=== PATIENT | male | born 1955 | race Caucasian/White ===

== ENCOUNTER 2017-03-12 15:52 | Inpatient (IN) ==
[2017-03-12] MEDS ORDERED: Heparin 25,000 UNIT/500 ML D5W 25,000 UNIT/500 ML BAG IVC ONE (15:55)
[2017-03-12] MEDS ORDERED: *HR* Ticagrelor 90 MG TABLET PO ONE (15:55)
[2017-03-12] MEDS ORDERED: 0.9 % Sodium Chloride 1,000 ML ONE ×3 (15:55→16:30)
[2017-03-12] MEDS ORDERED: 0.9 % Sodium Chloride 1,000 ML IVC ONE (15:55)
[2017-03-12] MEDS ORDERED: *HR* Heparin 5,000 UNIT/ML VIAL IVP ONE (16:02)
[2017-03-12] MEDS ORDERED: *HR* Heparin 5,000 UNIT/ML VIAL IVP PRN ×2 (16:02)
--- NOTE | 2017-03-12 16:04 | Emergency Department Note ---
Disposition Clinical Impression: ST elevation myocardial infarction (STEMI) Qualifiers: Involved coronary artery: right coronary artery Qualified Code(s): I21.11 - ST elevation (STEMI) myocardial infarction involving right coronary artery Disposition: Admitted As Inpatient Condition: Fair Time of Disposition: 16:12 Chest Pain HPI - General Chief Complaint: ED Chest Pain Stated Complaint: CP Time Seen by Provider: 03/12/17 15:54 Source: patient, EMS Mode of arrival: EMS Limitations: no limitations Vital Signs Reviewed: Yes Nursing Notes Reviewed: Yes - History of Present Illness HPI Narrative: 61-year-old male presents emergency Department with chest pain present. EMS with a sent and an EKG which showed a STEMI. Patient stated his chest pain started yesterday evening where was about a 4 out of 10 he noticed that about an hour prior to arrival he started having worsening chest pain where it was 9 out of 10 radiating up into his left jaw. He was very sweaty and also worried him to call the squad. Patient states his only history is hypertension and GERD. He otherwise had no cardiac diseases. He has seen a advice nurse one time for an arrhythmia where he had a sinus pause is there is been no issues of that since. Patient does not have diabetes. He says he is not nauseous not having any other symptoms at this time. Just the chest pain. Patient otherwise having no complaints. No headaches, blurry vision, back pain, neck pain, abdominal pain, shortness of breath, pain or tingling in any arms or legs , fevers, change in bowel movements or pain with urination. - Related Data Previous Rx's Medication Instructions Recorded Lidocaine Patch [Lidoderm 5% patch] 1 each TP DAILY #10 adh..patch 06/08/16 Allergies Allergy/AdvReac Type Severity Reaction Status Date / Time acetaminophen [From Percocet] Allergy Itching Verified 06/08/16 13:52 iodine Allergy Swelling Verified 06/08/16 13:52 of Lip/Tongue/Throat ofloxacin [From Floxin] Allergy Rash Verified 06/08/16 13:52 Oxycodone [From Percocet] Allergy Itching Verified 06/08/16 13:52 Review of Systems: 10 point review of systems done and negative unless otherwise stated in history of present illness. All systems ED: reviewed and negative except as stated. Review of Systems: As Per HPI Chest Pain PMH - Past Medical History Medical history: Reports: hypertension - Social History Smoking Status: Current every day smoker Alcohol use: Reports: occasionally Drug use: Reports: none Physical Exam - General Limitations: no limitations General appearance: alert, in no apparent distress (Patient is diaphoretic but not in any distress.) - Head Head exam: atraumatic - Eye Eye exam: Present: normal appearance, PERRL, EOMI - ENT ENT exam: normal exam, normal oropharynx, mucous membranes moist - Neck Neck exam: Present: normal inspection, full ROM, trachea midline - Chest Chest inspection: Present: normal inspection, symmetric chest wall rise - Respiratory Respiratory exam: Present: normal lung sounds bilaterally - Cardiovascular Cardiovascular exam: Present: regular rate, normal rhythm, normal heart sounds - Abdominal Exam Abdominal exam: Present: soft, Non-Tender. Absent: tenderness, distention, guarding, rebound, rigidity - Extremities Exam Extremities exam: Present: normal inspection, full ROM. Absent: tenderness, pedal edema - Back Exam Back exam: Present: normal inspection, full ROM. Absent: tenderness, CVA tenderness (R), CVA tenderness (L) - Neurological Exam Neurological exam: Present: alert, oriented X3 - Skin Skin exam: Present: warm, dry, intact, normal color Course Course Narrative: 61-year-old male presents to the ED with chest pain. Presented here with EMS a EKG was sent to us prior to their arrival it did show STEMI at this time we activated the STEMI alert. We contacted the cardiology suite and a headache currently had a patient on the tables they are unable to take him straight back to cardiology. We then took him back to the room and we got basic labs including CBC, BMP, troponin, PT, INR, PTT. Did give patient brillenta and heparin. We also got an EKG. Also get chest x-ray. It patient was given aspirin prior to arrival by EMS. He was not given a nitroglycerin due to being inferior CA. Patient okay with this plan. We did contact cardiology. - Consultations Consultation #1: Spoke with the clinical consultant Dr. Beasley agreed to set the patient and they will see him in the cardiology Sand Cutting Machine Operator. Time: 16:07 Chest Pain - [facility] Narrative Medical decision making narrative: 61-year-old male presented to the emergency department via EMS with an inferior STEMI. It was called in by EMS we activated the STEMI alert right leg at the EKG. When he arrived we placed in room 25 place the cardiac pads on him and place him on defibrillator. Patient also had an EKG done which again solidified the inferior CA. Patient was given aspirin prior to arrival. He is not given nitroglycerin. We did not give nitroglycerin due to this being an inferior CA. Patient was given heparin and Dilantin. Patient is allergic to iodine so we pretreated him with Benadryl. Patient does not have any cardiac history never had any stents placed. Patient was immediately taken taken back to the catheter lab to Dr. Beasley the clinical consultant do heart catheter. Patient doing well when he left. Patient was still having pain when he left. Patient is now admitted to the advice nurse service. - Medical Records Medical records reviewed: Yes I reviewed the patient's medical records. - Lab Data Lab results reviewed: Yes I reviewed the patient's lab results. Result diagrams: 03/12/17 15:58 03/12/17 15:58 - EKG Data EKG attestation: Yes I reviewed and interpreted this EKG. EKG results narrative: EKG done at 1556 review by myself and the attending shows sinus rhythm at a rate of 55, ME interval 320, QRS 113, QTc 386 with a normal axis. There is ST elevation in leads II, III, and F aVF with ST depression in V1 and V2 and V3 showing reciprocal changes. There is also depression in aVL. There is no acute T-wave abnormalities, no signs of heart strain or hypertrophy, no signs of any heart blocks, no signs of WPW/Brugada syndrome. This is an inferior myocardial infarction. This EKG is changed as the previous one done 06/08/[address] changes. Heart Score - Score History: Highly Suspicious EKG: Significant ST-Depression Age: 45-65 Risk Factors: 1-2 risk factors Troponin: 1-3x normal limit HEART Score Total: 7 Attestation Statement - Attestation Attestation: I, Nils Flores, examined this patient and my medical decision-making was reviewed with the CONSULTING ENGINEER/PA/Advanced Practice Nurse/Resident Physician. I agree with the documented findings, disposition and treatment plan as described except to the extent set forth below. 61-year-old male presents to the emergency department by EMS for concerns of chest pain. Patient states pain has been intermittent over the past 2 days. Today it significantly worsened. EMS performed an EKG which showed significant elevations in the inferior leads with depressions in leads V2, V3. Sand Cutting Machine Operator was notified immediately of the patient's case and presentation. Dr. Beasley was the interventionalist who was in the middle of a cardiac catheterization and the patient arrived. Patient was given aspirin by EMS and was started on heparin and Brillinta. Patient was taken back to cardiac Sand Cutting Machine Operator as soon as it was available.
[2017-03-12 16:09] LABS: Basophils # 0.1 K/mcL (0.0-0.2); Basophils % 0.5 %; Eosinophils # 0.3 K/mcL (0.0-0.6); Eosinophils % 2.3 %; Hemoglobin 14.2 g/dL (12.9-16.9); Immature Granulocytes % 0.3 % (0-4); Lymphocytes # 2.8 K/mcL (0.6-4.6); Lymphocytes % 24.2 %; Mean Corpuscular Volume 90.7 fL (83.0-100.0); Neutrophils # 7.3 K/mcL (1.6-8.9); Platelet Count 292 K/mcL (140-400); Red Blood Count 4.74 M/mcL (4.19-5.50); Red Cell Distribution Width 13.4 % (11.5-14.5); Segmented Neutrophils % 63.7 %
[2017-03-12 16:13] LABS: INR 1.1; Prothrombin Time 11.8 Seconds (9.4-12.1)
[2017-03-12] MEDS ORDERED: Heparin 25,000 UNIT/500 ML D5W 25,000 UNIT/500 ML BAG IVC SCH (16:15)
[2017-03-12 16:16] LABS: Activated Partial Thrombo Time 26.9 Seconds (26.0-36.0)
[2017-03-12] MEDS ORDERED: *HR* Heparin 10,000 UNIT/10 ML VIAL ONE (16:17)
[2017-03-12] MEDS ORDERED: Nitroglycerin 1,000 MCG/10 ML VIAL IV ONE (16:17)
[2017-03-12 16:22] LABS: BUN/Creatinine Ratio 13 (6-26); Blood Urea Nitrogen 15 mg/dL (8-26); Calcium 9.5 mg/dL (8.6-10.8); Carbon Dioxide 24 mEq/L (19-29); Chloride 106 mEq/L (98-109); Creatine Kinase 72 Units/L (30-200); Glucose 132 mg/dL (70-99); Magnesium 1.6 mg/dL (1.6-2.6); Osmolality,Calculated 295 (280-300); Potassium 3.8 mEq/L (3.5-4.5); Sodium 141 mEq/L (136-145); eGFR For African Americans > 60 (> 60); eGFR For Non-African Americans > 60 (> 60)
[2017-03-12] MEDS ORDERED: *HR* Midazolam HCl 5 MG/5 ML VIAL IVP ONE (16:24)
[2017-03-12] MEDS ORDERED: *HR* Atropine Sulfate 1 MG/10 ML SYRINGE ONE (16:26)
[2017-03-12] MEDS ORDERED: Tirofiban 12.5 MG/250ML 12.5 MG/250 ML BAG ONE (16:44)
[2017-03-12] MEDS ORDERED: Naloxone 0.4 MG/ML INJ IVP PRN (17:23)
[2017-03-12] MEDS ORDERED: Ondansetron 4 MG/2 ML VIAL IVP PRN (17:25)
[2017-03-12] MEDS ORDERED: Nitroglycerin 0.4 MG TAB.SUBL SL PRN (17:25)
--- NOTE | 2017-03-12 17:25 | Invasive Diagnostic Lab Proc ---
Name: Hao Baker Date of Study: 03/12/2017 Date: 1955 Ht: 70.0in Medical Record#: [id number] Age: 61 Wt: 227.52lb Gender: Male BSA: 2.2 Order #: [id number] BMI: 32.64 Physicians Procedure Physician: Osito Beasley DO Referring MD: Referring MD: Staff Name Position [facility] Monitor 04:18 PM Christina Lopez RN Commercial Mortgage Broker 04:18 PM Mary Martin RN Nurse 04:18 PM Chloe Coates RT (R) Scrub 04:18 PM Indications Indication STEMI Procedures Performed Procedure L HRT ARTERY/VENTRICLE ANGIO PRQ CARD REVASC HI 1 VSL Pre-Procedure Checklist Informed consent is complete signed and on chart. H&P is on chart. ID band is on and ID verified with patient. Patient NPO for procedure The procedure was described for the patient and questions were answered. ECG is on chart. Rhythm: Stemi Plan of Care Patient will tolerate the procedure without complications. Adequate level of comfort will be maintained. Hemodynamics will remain stable Patient will recover from procedure without complications. Respiratory function will be maintained. Cardiac rhythm will remain stable. Patient temperature will be maintained. Patient and/or family have verbalized understanding of the procedure. Patient Education Chief Complaint/Reason for Test: Cardiac Cath Developmental Category: Adult (18-64 years) Developmentally Appropriate for Age: Yes Learning Barriers: None Education Needs: Procedure Education Method: Verbal Information Taught: Cardiac Cath Educational Evaluation: Able to repeat information Intravenous Access Time IV Size Location DC'd Fluid/Drip Rate Units RN 04:24 PM 18g 1 1/4" Patent On Arrival Lt Antecubital 0.9NaCl 25 ml/hr Christina Lopez RN 04:24 PM 18g 1 1/4" Patent On Arrival Rt Antecubital Allergies iodine ofloxacin Oxycodone acetaminophen Vital Signs Time BP (mmHg) HR (bpm) O2 Sat. RR (bpm) LOC 04:27 PM / % 5 = Fully awake and oriented or at pre-proc level 04:27 PM / % 4 = Oriented but drowsy 04:42 PM / % 4 = Oriented but drowsy 04:20 PM 146 / 85 66 100 % 14 04:21 PM 124 / 84 58 100 % 11 04:26 PM 139 / 81 65 100 % 15 04:31 PM 119 / 75 56 100 % 26 04:36 PM 132 / 88 70 100 % 23 04:41 PM 105 / 74 69 100 % 19 04:46 PM 98 / 67 72 100 % 21 04:52 PM 134 / 83 94 99 % 20 04:53 PM 143 / 82 102 100 % 18 04:56 PM 149 / 95 104 100 % 21 Procedural Medications Time Medication Dose Units Method Given By 04:19 PM Oxygen 2 L/min nasal cannula Christina Lopez RN 04:25 PM Versed 2 mg Intravenous Christina Lopez RN 04:29 PM Lidocaine 2% 10 ml Subcutaneous Osito Beasley DO 04:40 PM Atropine 0.25 mg Intravenous Amita Helm RN 04:41 PM Dopamine 5 mcg/kg/min Intravenous Christina Lopez RN 04:45 PM Atropine 0.5 mg Intravenous Amita Helm RN 04:46 PM Dopamine 7.5 mcg/kg/min Intravenous Christina Lopez RN 04:47 PM Aggrastat Bolus: 50 ml Intravenous Amita Helm RN 04:47 PM Aggrastat 12.5mg/250ml 18 ml Intravenous Amita Helm RN 04:58 PM Dopamine 5 mcg/kg/min Intravenous Christina Lopez RN ASA Classification: Emergent Procedure: ASA score is assumed Linda Score Preprocedure Postprocedure Activity 2- Moves 4 extremities sustained head lift Activity 2- Moves 4 extremities sustained head lift Circulation 2- SBP +/= 20 points of pre-anesthetic level Circulation 2- SBP +/= 20 points of pre-anesthetic level Consciousness 2- Awake and alert oriented x 3 Consciousness 2- Awake and alert oriented x 3 O2 Saturation 2- Able to maintain O2 satruation of 92% on room air O2 Saturation 2- Able to maintain O2 satruation of 92% on room air Respiratory 2- Able to deep breathe and cough well Respiratory 2- Able to deep breathe and cough well Total Score 10 Total Score 10 Contrast Agent: Isovue Diagnostic Contrast: 100 ml Total Contrast: 100 ml Fluoro Dose: 860 mGy Activated Clotting Time Time Seconds to Clot 04:44 PM 385 Procedure Log Time Note Enter By 04:10 PM Pt arrived [facility] dairy lab technician [email or web address] 04[facility] PM Amita Helm RN Position: Monitor Time in: 16:10 [email or web address] 04:10 PM Christina Lopez RN Position: Commercial Mortgage Broker Time in: 16:10 [email or web address] 04:18 PM Mary Martin RN Position: Nurse Time in: 16:18 [email or web address] 04:18 PM Chloe Coates RT (R) Position: Scrub Time in: 16:18 [email or web address] 04:18 PM Patient charges- Angio tray pack, Navilyst 3mm J, Pulse Oximetry and ACIST tubing and transducer 04:19 PM Hair removed from procedure site in procedure lab using clippers. Bilateral groin prepped with Chloraprep by Mary Martin RN, safety strap applied then patient was draped. Skin intact. oumm 04:19 PM Physican paged/called 16:19. oumm 04:19 PM Physican responded and notified patient is ready 16:19 oummers 04:19 PM Physician arrived 16:19 mmers 04:19 PM Meet and greet completed 04:19 PM Sign in performed according to hospital policy. [email or web address] 04:19 PM Procedure start 16:19 [email or web address] 04:19 PM Time: 16:19 Oxygen on at 2 L/min per nasal cannula by Christina Lopez RN [facility] 04:19 PM Vitals capture started with the following parameters, Patient=Adult, Interval=5 min, Initial Yspokuog=888 mmHg, Deflation Rate=5 mmHg, Cuff placed on Right Arm 04:19 PM Vitals capture stopped. 04:20 PM HR=66 bpm, BTVN=537/85 mmhg, ZzS7=440.0 %, Resp=14 B/min, Comment=SR 04:20 PM Case Start 04:20 PM CathStat 04:21 PM Vitals capture started with the following parameters, Patient=Adult, Interval=5 min, Initial Jporcqta=926 mmHg, Deflation Rate=5 mmHg, Cuff placed on Right Arm 04:21 PM HR=58 bpm, ZWTH=436/84 mmhg, HwM5=730.0 %, Resp=11 B/min 04:25 PM Time: 16:25 Versed 2 mg Intravenous Given by Christina Lopez RN [email or web address] 04:26 PM Pressure channel 1 zeroed. 04:26 PM HR=65 bpm, ZNJW=811/81 mmhg, AnL8=246 %, Resp=15 B/min 04:27 PM Time: 16:27 Patient comfortable and pain free: Yes : PM Time: 16:LOC: 5 = Fully awake and oriented or at pre-proc level kk: PM Time out performed according to hospital policy kk 04:27 PM Clinical Presentation: STEMI or equivalent 04:28 PM Time: 16:29 10 ml Lidocaine 2% to right groin Subcutaneous Given by Osito Beasley DO :29 PM Micro-Introducer Kit utilized for sheath placement kk 04:29 PM Access obtained by percutaneous puncture. 6Fr 10cm Terumo [place] sheath placed in right Femoral artery. [id number] kkall 04:30 PM 6Fr FL 4 catheter inserted over the wire DNC kkall 04:30 PM wire removed kk 04:30 PM fluids opened for 500 cc bolus [email or web address] 04:30 PM Recorded Pressure: Ao, HR=56, Condition=Condition 1 (Aorta) Ao 92/50/68 04:31 PM LCA angiography performed in multiple views. kkall 04:31 PM Catheter removed kkner 04:31 PM HR=56 bpm, FHYW=659/75 mmhg, FcF4=966.0 %, Resp=26 B/min 04:32 PM 6Fr JR 4 Marydel Bright-Tip guide catheter was used to cannulate the PCI vessel successfully. reused? No kkallner 04:32 PM wire removed kkallner 04:32 PM Recorded Pressure: LV, HR=89, Condition=Condition 1 (Left Ventricle) LV 91/6/16 04:32 PM Recorded Pressure: LV, Ao, HR=67, Condition=Condition 1 (Left Ventricle) LV 99/7/14, (Aorta) Ao 106/40/80 04:33 PM Catheter selectively placed in left ventricle [email or web address] 04:33 PM Bolus angiogram of left Ventricle kkallner 04:33 PM catheter placed into RCA [email or web address] 04:33 PM RCA angiography performed in multiple views. kkner 04:34 PM .014 ChoICE PT Extra Support 300cm guide wire across target lesion- successful. reused? No Mid RCA kkallner 04:35 PM 3.5mm x 24mm Synergy drug-eluting stent across target lesion- successful Lot #[id number] [email or web address] 04:36 PM Recorded Pressure: Ao, HR=75, Condition=Condition 1 (Aorta) Ao 111/70/89 04:36 PM HR=70 bpm, MOHN=085/88 mmhg, ZsQ1=991.0 %, Resp=23 B/min 04:38 PM Stent deployed @ 14 reta for 15 seconds [email or web address] 04:40 PM Time: 16:40 Atropine .25 mg Intravenous Given by Amita Helm RN [email or web address] 04:41 PM Time: 16:41 Dopamine 5 mcg/kg/min Intravenous Given by Christina Lopez RN [place] pump [email or web address] 04:41 PM HR=69 bpm, YPHI=750/74 mmhg, ScC5=688.0 %, Resp=19 B/min 04:42 PM Time: 16:27 Patient comfortable and pain free: Yes [email or web address] 04:42 PM Time: 16:27LOC: 4 = Oriented but drowsy [email or web address] 04:42 PM Stent delivery system removed intact. [email or web address] 04:43 PM 3.0mm x 24mm Synergy drug-eluting stent across target lesion- successful Lot #[id number] Distal RCA [email or web address] 04:44 PM At 16:44 the ACT was 385 seconds. [email or web address] 04:44 PM Stent deployed @ 14 reta for 15 seconds [email or web address] 04:44 PM Stent balloon reinflated @ 18 reta for 10 seconds [email or web address] 04:45 PM Stent delivery system removed intact. [email or web address] 04:45 PM Time: 16:45 Atropine .5 mg Intravenous Given by Amita Helm RN kkallner 04:46 PM HR=72 bpm, NIBP=98/67 mmhg, DbC2=208.0 %, Resp=21 B/min 04:46 PM Time: 16:46 Dopamine 7.5 mcg/kg/min Intravenous Given by Christina Lopez RN [place] pump [email or web address] 04:47 PM Stent delivery system removed intact. [email or web address] 04:47 PM Time: 16:47 Aggrastat Bolus: 50 ml Intravenous Given by Amita Helm RN [place] pump [email or web address] 04:47 PM Time: 16:47 Aggrastat 12.5mg/250ml 18 ml Intravenous Given by Amita Helm RN [place] pump [email or web address] 04:48 PM 3.0mm x 12mm Synergy drug-eluting stent across target lesion- successful Lot #[id number] [email or web address] 04:51 PM Stent deployed @ 14 reta for 18 seconds kkner 04:51 PM Stent balloon reinflated @ 16 reta for 10 seconds [email or web address] 04:52 PM HR=94 bpm, ISSP=890/83 mmhg, SpO2=99.0 %, Resp=20 B/min 04:52 PM Stent delivery system removed intact. [email or web address] 04:53 PM NIBP STAT measurement started. 04:53 PM 2.5 mm x 20 mm Emerge Monorail balloon across target lesion- successful. reused? No [email or web address] 04:53 PM YX=681 bpm, EBKF=659/82 mmhg, KdB7=154 %, Resp=18 B/min 04:54 PM balloon and wire removed kkner 04:55 PM balloon never inflated kk 04:55 PM Bolus angiogram of right Femoral complete: 4 ml/sec for a total of 7 mls kk 04:56 PM Catheter removed kkner 04:56 PM VD=759 bpm, ZDQX=915/95 mmhg, MtM2=743 %, Resp=21 B/min 04:57 PM Time: 16:42 Patient comfortable and pain free: Yes 04:57 PM Time: 16:42LOC: 4 = Oriented but drowsy [email or web address] 04:57 PM Procedure completed at 16:57 kkall 04:58 PM Sign out completed: Radiation Dose 859.85 mGy Fluoro Time: 7.4 Isovue 370 - 200ml contrast 100 ml given by Osito Beasley DO. Complications: NoneCardiac Rehab Consult needed: YesConfirmed administered medications: Yes 04:59 PM Time: 16:58 Dopamine 5 mcg/kg/min Intravenous Given by Christina Lopez RN [place] pump kk 05:00 PM Isovue 370 - 200ml,1 Bottle(s) used. kk 05:00 PM Arterial sheath pulled, Mynx closure device used and was Successful [id number] S/N. [email or web address] 05:00 PM Post ECG Sinus Tachycardia kkall 05:01 PM Post Blood Pressure 149/95 kkall 05:01 PM 17:01 Post Pulses Bilateral DP & PT 2+ kkallner 05:01 PM Information taught Cardiac Cath and Mynx kkallner 05:01 PM Education needs Procedure, Plan of Care, and Responsibilities of Patient in Care [email or web address] 05:01 PM Learning barriers :None kkallner 05:01 PM Education Methods Verbal kkallner 05:01 PM Education evaluation Able to repeat information [email or web address] 05:01 PM Site status No bleeding/hematoma - Rt Groin as reported by Chloe Coates RT (R) at 17:01 [email or web address] 05:01 PM Opsite applied kkallner 05:01 PM Plavix, Effient or Brilinta given No kkallner 05:01 PM Delay to floor No [email or web address] 05:02 PM Patient out of room: 17:01 [email or web address] 05:02 PM Family placed in consult room. [email or web address] 05:02 PM Complications: None kkallner 05:02 PM Fluoro Time: 7.4 [email or web address] 05:02 PM Isovue 370 - 200ml contrast 100 ml given by Osito Beasley DO. [email or web address] 05:02 PM Radiation Dose 859.85 mGy kkallner 05:03 PM Coronary Dominance: right [email or web address] 05:04 PM Lesion found in Mid RCA. Pre Stenosis: 100 Pre JOSE JUAN Flow: [email or web address] 05:04 PM Lesion found in Mid Circumflex. Pre Stenosis: 60 Pre JOSE JUAN Flow: [email or web address] 05:04 PM Lesion found in 1st Marginal. Pre Stenosis: 60 Pre JOSE JUAN Flow: [email or web address] 05:05 PM Left Main Coronary Artery with 0% stenosis kkallner 05:05 PM Proximal Left Anterior Descending Coronary Artery with 0% stenosis. If graft is supplying this territory, 0 % stenosis. [email or web address] 05:05 PM Mid/Distal Left Anterior Descending Coronary Artery and diagonal branches with 0% stenosis. If graft is supplying this area, 0 % stenosis kkallner 05:05 PM Circumflex, Obtuse Marginal, Left Posterior Descending, and Left Posterolateral Coronary Arteries with 60 % stenosis. If graft is supplying this area, 0 % stenosis kkallner 05:05 PM Right Coronary, Right Posterior Descending Arteries with Right Posterolateral and Acute Marginal branches with 100 % stenosis. If graft is supplying this area, 0 % stenosis kkallner 05:05 PM Ramus with 0% stenosis. If graft is supplying this area, 0 % stenosis kkallner 05:10 PM Dopamine d/c kkallner 05:17 PM Report given to Michelle POWELL Pt taken to ICU Room #1. 17:17 [email or web address] Complications Complication None None Hemodynamics Pressures Site Systolic/A Wave Diastolic/V Wave Mean AO 92 50 68 LV 91 6 16 LV 99 7 14 AO 106 40 80 AO 111 70 89 Post Procedure Information Blood Pressure: 149/95 mmHg Rhythm: Sinus Tachycardia Post procedural instructions were given Closure Device Time Device Success/Fail 03/12/2017 5:07:00 PM MynxGrip Site Checks Time Location Status Staff Sheath In? Note 05:01 PM Rt Groin No bleeding/hematoma Sue Gar MD, FACC 05:01 PM Rt Groin No bleeding/hematoma Chloe Coates RT (R) Pulses Time Site Pre-Procedure Post-Procedure Note 03/12/2017 4:28:00 PM Bilateral DP & PT 2+ 5:01:00 PM Bilateral DP & PT 2+ Updated by Jacinda Santos RT (R) on 03/12/2017 5:17:58 PM electronically signed on 03/12/2017 5:18:34 PM with status of Final
[2017-03-12] MEDS: 0.9 % Sodium Chloride 1,000 ML IVC SCH ×2 (17:44→21:43)
--- NOTE | 2017-03-12 19:41 | Cardiology History & Physical ---
Date of Encounter: 03/12/17 Time of Encounter: 16:00 Assessment and Plan (1) ST elevation myocardial infarction (STEMI) Current Visit: Yes Status: Acute The assessment and plan as outlined above was discussed with the patient and/or family members who expressed understanding and agreement. All questions were answered. Acute inferior STEMI, with ongoing chest pain, hemodynamically stable but reletively hypotensive, discussed risks and benefits of emergent invasive strategy of left heart cath with revascularization if indicated, pt elects to proceed. History of Present Illness Chief complaint: Chest pain HPI: Mr. Baker is a 61 year old male who presented to the ER with new onset mid epigastric chest pain, starting last pm while at rest, 5/10 with initial episode , associated with shortness of breath and pain in bilat jaws, lasting approx 20 mins before resolving spontaneously. He had 2 to 4/10 chest pain on and off overnight, pain did not completely resolve. He noted sudden increase in pain severity, to 10/10, accompanied by nausea, diaphoresis and radiation into jaw bilaterlly. He sought care in the ER, was found to have acute ST segment elevation in the inferior leads consistent with inferior STEMI. He continues to have 8/10 chest pain despite medical tx., radiating into jaw. Past Med Surg Social Fam HX - Past Medical History Medical history: hypertension, kidney stones, myocardial infarction - Social History Smoking Status: Current every day smoker Smokeless Tobacco Status: No Alcohol use: occasionally Drug use: none - Family History Father Living Status: Age at : 84 Cause of : cancer and heart disease Hx Family Cardiac Disorders: Yes Hx Family Cancer: Yes Mother Living Status: Age at : 81 Cause of : heart Hx Family Cardiac Disorders: Yes Medications and Allergies Lidocaine Patch [Lidoderm 5% patch] 1 each TP DAILY #10 adh..patch 06/08/16 [Rx] 3 Allergy/AdvReac Type Severity Reaction Status Date / Time acetaminophen [From Percocet] Allergy Itching Verified 06/08/16 13:52 iodine Allergy Swelling Verified 06/08/16 13:52 of Lip/Tongue/Throat ofloxacin [From Floxin] Allergy Rash Verified 06/08/16 13:52 Oxycodone [From Percocet] Allergy Itching Verified 06/08/16 13:52 All Systems Review: A 10-system review of systems was performed and is negative for pertinent findings except as documented above in the HPI. Physical Examination Vital Signs, Last 4 Hours Temp Pulse Resp BP Pulse Ox 03/12/17 18:30 65 20 129/85 100 03/12/17 18:15 71 18 117/82 99 03/12/17 18:00 71 20 114/74 98 03/12/17 17:45 71 18 119/77 95 03/12/17 17:37 71 03/12/17 17:35 97.7 F 71 20 112/76 98 03/12/17 17:34 97.7 F 71 20 112/76 98 General: Conversant, Other (severe pain, in obvious distress.) Neck: No JVD, Normal carotid pulses Cardiac: Reg Rate and Rhythm, Normal S1 and S2 Lungs: Normal Breath Sounds, No Wheeze, Rales, Rhonchi Neuro: Alert and responsive, No focal deficits noted Abdomen: Soft, Non-Tender Skin: No rashes noted on visualized skin Musculoskeletal: No Chest Wall Tenderness Extremities: No Cyanosis, No Edema, Normal Pulses Results 03/12/17 15:58 03/12/17 15:58
[2017-03-12] MEDS: *HR* Ticagrelor 90 MG TABLET PO SCH (20:38)
[2017-03-13 06:20] LABS: BUN/Creatinine Ratio 14 (6-26); Blood Urea Nitrogen 13 mg/dL (8-26); Calcium 8.7 mg/dL (8.6-10.8); Carbon Dioxide 22 mEq/L (19-29); Chloride 110 mEq/L (98-109); Glucose 107 mg/dL (70-99); Osmolality,Calculated 289 (280-300); Sodium 139 mEq/L (136-145); eGFR For African Americans > 60 (> 60); eGFR For Non-African Americans > 60 (> 60)
[2017-03-13 06:34] LABS: Eosinophils % 1.1 %; Hematocrit 37.8 % (37.5-50.1); Immature Granulocytes % 0.3 % (0-4); Lymphocytes % 19.6 %; Mean Corpuscular HGB Conc 32.8 g/dL (31.6-35.5); Mean Corpuscular Hemoglobin 29.2 pg (28.0-33.3); Mean Corpuscular Volume 89.2 fL (83.0-100.0); Mean Platelet Volume 10.2 fL (9.4-12.4); Monocytes % 9.3 %; Platelet Count 232 K/mcL (140-400); Red Blood Count 4.24 M/mcL (4.19-5.50); Red Cell Distribution Width 13.6 % (11.5-14.5); Segmented Neutrophils % 69.5 %
[2017-03-13 06:35] LABS: Basophils % 0.2 %; Eosinophils # 0.1 K/mcL (0.0-0.6); Hemoglobin 12.4 g/dL (12.9-16.9); Lymphocytes # 2.4 K/mcL (0.6-4.6); Monocytes # 1.2 K/mcL (0.0-1.3); Neutrophils # 8.6 K/mcL (1.6-8.9)
--- NOTE | 2017-03-13 08:06 | Pulmonology Consult Note ---
Date of Encounter: 03/13/17 Time of Encounter: 08:00 Assessment and Plan (1) ST elevation myocardial infarction (STEMI) Current Visit: Yes Status: Acute Patient hemodynamically stable after intervention and he will be transferred to [facility]. At this time patient appears to be stable and can be followed up by hospitalist if needed. Thank you very much for the consultation Qualifiers: Involved coronary artery: right coronary artery Qualified Code(s): I21.11 - ST elevation (STEMI) myocardial infarction involving right coronary artery (2) Leukoariosis Current Visit: Yes Status: Acute This is most likely is related and can be found in patient with acute coronary syndrome no need for any antibiotics. Patient to be on GI prophylaxis DVT prophylaxis. The patient has antiplatelet and received heparin History of Present Illness Consult date: 03/13/17 Requesting physician: Osito Beasley Reason for consult: other (Critical care management) Chief complaint: Chest pain History of present illness: This is a pleasant 61-year-old male came to the emergency room with new onset epigastric chest pain and he was found to have ST elevation OK and was treated. Patient was admitted to ICU after that. At this point patient denies any significant chest pain. He denies any history of COPD or any other significant comorbidities. Due to change his environment he had difficult to sleep last night. He denies any fever or chills. Past Med Surg Social Fam HX - Past Medical History Medical history: hypertension - Social History Smoking Status: Current every day smoker Smokeless Tobacco Status: No Alcohol use: occasionally Drug use: none - Family History Father Living Status: Age at : 84 Cause of : cancer and heart disease Hx Family Cardiac Disorders: Yes Hx Family Cancer: Yes Mother Living Status: Age at : 81 Cause of : heart Hx Family Cardiac Disorders: Yes Medications and Allergies Lidocaine Patch [Lidoderm 5% patch] 1 each TP DAILY #10 adh..patch 06/08/16 [Rx] 3 Allergy/AdvReac Type Severity Reaction Status Date / Time acetaminophen [From Percocet] Allergy Itching Verified 06/08/16 13:52 iodine Allergy Swelling Verified 06/08/16 13:52 of Lip/Tongue/Throat ofloxacin [From Floxin] Allergy Rash Verified 06/08/16 13:52 Oxycodone [From Percocet] Allergy Itching Verified 06/08/16 13:52 All Systems: A 10-system review of systems was performed and is negative for pertinent findings except as documented above in the HPI. Physical Examination Vital Signs: Vital Signs, Last 4 Hours Temp Pulse Resp BP Pulse Ox 03/13/17 07:28 52 03/13/17 07:26 98.3 F 03/13/17 07:00 52 18 95/65 96 03/13/17 06:00 53 19 96/67 97 03/13/17 05:00 55 19 99/57 96 03/13/17 04:16 98.4 F General appearance: no acute distress Eyes: nonicteric ENT: oropharynx moist Neck: supple Effort: normal Inspection: normal Auscultation: bilateral: clear Percussion: bilateral: not dull Cardiovascular: regular rate and rhythm Extremities: no cyanosis normal mental status, non-focal exam mood appropriate Results - Laboratory Findings CBC and BMP: 03/13/17 05:58 03/13/17 05:58 PT/INR, D-dimer PT 11.8 Seconds (9.4-12.1) 03/12/17 15:58 Abnormal lab findings: Abnormal lab results WBC 12.4 K/mcL (4.3-11.1) H 03/13/17 05:58 Hgb 12.4 g/dL (12.9-16.9) L D 03/13/17 05:58 Chloride 110 mEq/L (98-109) H 03/13/17 05:58 Glucose 107 mg/dL (70-99) H 03/13/17 05:58 POC Glucose 112 (58-89) H 03/12/17 17:30 Troponin I 0.36 ng/mL (0-0.03) H* 03/12/17 15:58 - Clinical Findings Intake & Output: Intake & Output 03/12/17 03/13/17 03/13/17 23:59 07:59 15:59 Intake Total 1240 / 1240 240 / 240 Output Total 750 / 750 450 / 450 Balance 490 / 490 -210 / -210 Weight 104.4 kg Consult Discharge Plan - Plan Referrals: Richard Robin MD [Primary Care Provider] -
[2017-03-13] MEDS: Aspirin 81 MG TAB.CHEW PO SCH (08:12)
[2017-03-13] MEDS: *HR* Ticagrelor 90 MG TABLET PO SCH ×2 (08:12→19:59)
[2017-03-13] MEDS: Famotidine 20 MG TABLET PO SCH ×2 (08:12→17:17)
[2017-03-13] MEDS: 0.9 % Sodium Chloride 1,000 ML IVC SCH (08:16)
--- NOTE | 2017-03-13 12:53 | Cardiology Progress Note ---
Date of Encounter: 03/13/17 Time of Encounter: 12:51 Assessment and Plan (1) ST elevation myocardial infarction (STEMI) Current Visit: Yes Status: Acute The assessment and plan as outlined above was discussed with the patient and/or family members who expressed understanding and agreement. All questions were answered. Acute inferior STEMI s/p PTCA and HARRIS to the m RCA. There was a 60% stenosis in the Mid Circumflex. The lesion has collaterals which feed from left to right. 60% stenosis in the 1st Marginal. He denies recurrent chest pain. TTE ordered. There was no complication from his procedure. Importance of DAPT with asa and brilinta uninterrupted for minimum of one year reviewed with patient and he voiced understanding. Continue statin. BB held due to bradycardia. There was no complication with his right groin access site. Activity restrictions reviewed . Phase one cardiac rehab ordered. Qualifiers: Involved coronary artery: right coronary artery Qualified Code(s): I21.11 - ST elevation (STEMI) myocardial infarction involving right coronary artery (2) Leukoariosis Current Visit: Yes Status: Acute Likely reactive from acute IL. Discussion w patient/family: The assessment and plan as outlined above was discussed with the patient and/or family members who expressed understanding and agreement. All questions were answered. Thank you for involving us in the care of your patient. Please call with any questions. Subjective Principal diagnosis: STEMI Interval history: No events overnight. Doing well. Objective Vital Signs, Last 4 Hours Temp Pulse Resp BP Pulse Ox 03/13/17 10:56 55 16 95 03/13/17 09:18 98.6 F 57 12 101/68 97 General: Conversant, No Apparent Distress HEENT: Atraumatic, Normocephaly, Mucus Membranes Moist Neck: No JVD, Normal carotid pulses Cardiac: Reg Rate and Rhythm, Normal S1 and S2, No Murmur Lungs: Normal Breath Sounds, No Wheeze, Rales, Rhonchi Neuro: Alert and responsive, No focal deficits noted Abdomen: Soft, Non-Tender Skin: No rashes noted on visualized skin Musculoskeletal: No Chest Wall Tenderness Extremities: No Clubbing, No Cyanosis, No Edema, Normal Pulses Results 03/13/17 05:58 03/13/17 05:58 Lab Results 03/13/17 03/13/17 05:58 05:58 WBC 12.4 H Hgb 12.4 L D Hct 37.8 Plt Count 232 Sodium 139 Potassium 4.0 Chloride 110 H Carbon Dioxide 22 BUN 13 Creatinine 0.91 Glucose 107 H Calcium 8.7 - EKG Interpretation EKG results cardiology: personally reviewed Consult Discharge Plan - Plan Referrals: Richard Robin MD [Primary Care Provider] -
--- NOTE | 2017-03-14 07:14 | Discharge Summary ---
Date of Encounter: 03/14/17 Time of Encounter: 07:10 - Discharge Diagnosis (1) ST elevation myocardial infarction (STEMI) Priority: Primary Status: Acute Comments: Presented with STEMI. Qualifiers: Involved coronary artery: right coronary artery Qualified Code(s): I21.11 - ST elevation (STEMI) myocardial infarction involving right coronary artery - Discharge Medications Prescriptions: Nitroglycerin 0.4 mg SL Q5MIN PRN #30 tab.subl PRN Reason: Chest Pain Atorvastatin [Lipitor] 80 mg PO HS #60 tablet Carvedilol [Coreg] 6.25 mg PO BIDWM #60 tablet Losartan [Cozaar] 25 mg PO DAILY #30 tablet Ticagrelor [Brilinta] 90 mg PO BID #60 tablet Home Medications: Omeprazole [PriLOSEC] 40 mg PO BID 03/13/17 [History] Aspirin 81 mg PO DAILY tab.chew 03/14/17 [Rx] Atorvastatin [Lipitor] 80 mg PO HS #60 tablet 03/14/17 [Rx] Carvedilol [Coreg] 6.25 mg PO BIDWM #60 tablet 03/14/17 [Rx] Losartan [Cozaar] 25 mg PO DAILY #30 tablet 03/14/17 [Rx] Nitroglycerin 0.4 mg SL Q5MIN PRN #30 tab.subl 03/14/17 [Rx] Ticagrelor [Brilinta] 90 mg PO BID #60 tablet 03/14/17 [Rx] Allergies/Adverse Reactions: 3 Allergy/AdvReac Type Severity Reaction Status Date / Time acetaminophen [From Percocet] Allergy Itching Verified 03/13/17 13:30 iodine Allergy Swelling Verified 03/13/17 13:30 of Lip/Tongue/Throat ofloxacin [From Floxin] Allergy Rash Verified 03/13/17 13:30 Oxycodone [From Percocet] Allergy Itching Verified 03/13/17 13:30 Procedures/tests Complete & Pending: Procedures Performed prior 72 hours Category Date Time Status EV echocardiogram Routine Y 03/13/17 12:50 Ordered Date of admission: 03/12/17 16:33 Primary care physician: Richard Robin MD Consults: 03/12/17 16:45 Consult to Cardiac Rehabilitation-Phase1 [CONS] Routine Comment: Reason for Consult: STEMI Call Completed: No 03/12/17 17:58 Consult to Critical Care [CONS] Routine Consulting Provider: [facility] Reason for Consult: S/P TN, 3 STENTS TO RCA Call Completed: Yes Discharging clinician: Vladimir Perry Anticipated date of discharge: 03/14/17 - Patient Status Disposition: Home, Self-Care Condition: Fair Functional capacity at discharge: independent ambulation Overall status at discharge: patient is progressing back to baseline - Discharge Instructions Follow Up With: Richard Robin MD [Primary Care Provider] - Additional Instructions: RISK FACTORS: STOP SMOKING: If you smoke, STOP. Smoking or tobacco use significantly increases your risk of heart disease because nicotine causes the arteries to narrow or constrict. It also causes fats to stick to the artery. Your chances of having a heart attack are greatly increased if you continue to smoke. For more information, call the education line for smoking cessation 2-195-NMCHQHE EAT A LOW FAT/CHOLESTEROL/SODIUM DIET: This diet may help reduce your chances of having a heart attack. LIFTING: Avoid lifting anything more than 10 pounds for 5-7 days Prior to straining, laughing, sneezing and/or coughing, apply manual pressure directly over insertion site. ACTIVITY: You may walk or climb stairs as tolerated You can resume sexual activity as tolerated In general, you are encouraged to engage in a minimum of 30 minutes or more of moderate intensity physical activity, such as brisk walking, daily or at least 3 -4 times weekly BATHING Do not submerge the site into water (bath tub, hot tub, swimming pool) for 1 week. This can be a source for infection into the blood stream. You may shower after 24 hours SITE CARE: After 24 hours, you may remove the dressing and leave the site open to air. Keep the site clean and dry. Clean gently and pat dry. You can expect bruising and tenderness that gradually resolve within a week or two. Return to work as instructed per your physician Resume driving as instructed per physician Keep all scheduled follow up appointments Resume medications as instructed IMPORTANT: If prescribed a Platelet Aggregation Inhibitor such as, Plavix, Brilinta or Effient: Duration of therapy is minimum one year These medications are often used in combination with Aspirin in prevention of future heart attacks Never discontinue unless consult with your Senior Production Planner STROKE (CVA) Risk factors for a stroke are: Age, cigarette smoking, diabetes, excessive alcohol consumption, family history, high blood pressure, overweight, physical inactivity, prior stroke, heart attack, diagnosis of carotid artery stenosis or other artery disease. Warning signs: Sudden numbness or weakness of the face, arm or leg; especially on one side of the body, sudden confusion, trouble speaking or understanding, sudden trouble seeing in one or both eyes, sudden trouble walking, dizziness, loss of balance or coordination, sudden severe headache with no cause. Call 911 or go to the Emergency Room. CONGESTIVE HEART FAILURE: If you have been diagnosed with Congestive Heart Failure (CHF) and your symptoms return, make an appointment with your physician Weigh yourself daily. Notify your physician if you have a weight gain of two or more pounds in one day or five or more pounds in one week. If you experience any difficulty breathing, please call 911 BLEEDING: Although the risk of bleeding is minimal, it can happen. If you have any bleeding from the site, apply firm pressure above the puncture site for 10-15 minutes. If the bleeding does not stop, continue manual pressure and call 911 Contact your physician if: You develop a fever greater than 101 degrees Fahrenheit Your site becomes reddened or has any drainage You have an increase in pain or burning at the site or if a large knot forms at the site. If you experience chest pain, shortness of breath, dizziness, or extreme tiredness, stop the activity and rest. Please notify your physicians office if you experience any of these symptoms and they are not relieved by rest please call 911! - Diet and Activity Diet: low fat, low cholesterol, low salt diet - Hospital Course Hospital course: Mr. Baker is a 61 year old male presented with acute inferior STEMI. Taken for emergent catheterization with results showing: Lesion Findings/Interventions * Left Main Coronary Artery The LMCA is angiographically free of disease. * Left Anterior Descending The LAD is angiographically free of disease. The 1st Diagonal is angiographically free of disease. * Circumflex There is a 60% stenosis in the Mid Circumflex. The lesion has collaterals which feed from left to right. There is a 60% stenosis in the 1st Marginal. * Right Coronary Artery There is a 24 mm long, 100% stenosis in the Mid RCA. The lesion has a JOSE JUAN flow of 0. An intervention was performed on the Mid RCA with a final stenosis of 0%. There were no lesion complications. Underwent PTCA with drug-eluting stent to mid RCA 100% lesion. Prepping for discharge home today in stable condition. Postprocedure education provided. Patient educated on importance of aspirin and Brilinta for at least one year uninterrupted unless directed by cardiology. I did spend 3-5 minutes today providing smoking cessation counseling. NicoDerm CQ 21 mg patch provided. Additionally, informed by nursing staff patient has not received beta deni during hospital stay due to bradycardia with heart rate in the low 50s. Patient will not take Coreg at time of discharge and keep a heart rate and blood pressure log and bring to follow-up appointment. We'll consider addition of beta deni at that time. Time spent discussing smoking cessation with patient: 3 to 10 minutes - Time Spent with Patient Total time spent providing and/or coordinating discharge services: Less than 30 minutes Physical Examination Vital Signs, Last 4 Hours Temp Pulse Resp BP Pulse Ox 03/14/17 05:01 98.3 F 60 18 121/78 99 General: Conversant, No Apparent Distress HEENT: Atraumatic, Normocephaly, Mucus Membranes Moist Neck: No JVD, Normal carotid pulses Cardiac: Reg Rate and Rhythm, Normal S1 and S2, No Murmur Lungs: Normal Breath Sounds, No Wheeze, Rales, Rhonchi Neuro: Alert and responsive, No focal deficits noted Abdomen: Soft, Non-Tender Skin: No rashes noted on visualized skin, Other (Right groin site dry and intact , no hematoma, no ecchymosis, no bleeding, right DP and PT pulses 2+ palpable) Musculoskeletal: No Chest Wall Tenderness Extremities: No Clubbing, No Cyanosis, No Edema, Normal Pulses
[2017-03-14 07:41] VITALS: BP 124/84
[2017-03-14] MEDS: Aspirin 81 MG TAB.CHEW PO SCH (07:41)
[2017-03-14] MEDS: Famotidine 20 MG TABLET PO SCH (07:41)
[2017-03-14] MEDS: *HR* Ticagrelor 90 MG TABLET PO SCH (07:41)
--- NOTE | 2017-03-15 16:55 | Electrocardiograph Report ---
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
--- NOTE | 2017-03-15 16:58 | Electrocardiograph Report ---
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
== END 2017-03-14 09:12 | disposition home or self-care (01) | DRG 247 ==
LOC: EMEROO 15:52 → ICNU 16:25 → 2NNU 03-13 09:19
PROVIDERS: ADMIT Internal Medicine Cardiovascular Disease; ATTEND Internal Medicine Cardiovascular Disease

== ENCOUNTER 2017-08-16 06:29 | Observation (INO) ==
[2017-08-16] MEDS ORDERED: predniSONE 20 MG TABLET PO ONE (06:46)
[2017-08-16] MEDS ORDERED: 0.9 % Sodium Chloride 1,000 ML IVC SCH (07:00)
[2017-08-16] MEDS ORDERED: Heparin 1,000 UNITS/500 mL 500 ML ONE (07:11)
[2017-08-16] MEDS ORDERED: Nitroglycerin 1,000 MCG/10 ML VIAL IV ONE (07:11)
[2017-08-16] MEDS ORDERED: 0.9 % Sodium Chloride 1,000 ML ONE (07:11)
[2017-08-16] MEDS ORDERED: *HR* Heparin 10,000 UNIT/10 ML VIAL ONE (07:11)
[2017-08-16] MEDS ORDERED: ISOVUE-370 200 ML INFUS..BTL IV ONE ×2 (07:11→08:22)
[2017-08-16] MEDS ORDERED: *HR* FentaNYL (PF) 100 MCG/2 ML VIAL ONE (07:49)
[2017-08-16] MEDS ORDERED: *HR* Midazolam HCl 2 MG/2 ML VIAL ONE (07:49)
--- NOTE | 2017-08-16 07:52 | Pre-Sedation Evaluation ---
Pre-sedation evaluation - Pre-sedation checklist Date of procedure: 08/16/17 Procedure: C Recent Vitals: Last Vital Signs Temp 98.9 F 08/16/17 07:25 Pulse 75 08/16/17 07:25 Resp 16 08/16/17 07:25 BP 135/86 08/16/17 07:25 Pulse Ox 95 08/16/17 07:25 H&P (including ROS) documented in medical record: Yes Previous reaction to sedatives/anesthetics: No Dietary Status: NPO after Midnight Dentition: No loose teeth or bridges ASA Classification *see protocol: CLASS II-Mild systemic disease
[2017-08-16] MEDS ORDERED: Tirofiban 12.5 MG/250ML 12.5 MG/250 ML BAG ONE (08:12)
[2017-08-16] MEDS ORDERED: *HR* Ticagrelor 90 MG TABLET ONE (08:35)
--- NOTE | 2017-08-16 09:10 | Invasive Diagnostic Lab Proc ---
Name: Hao Baker Date of Study: 08/16/2017 Date: 1955 Ht: 72.0in Medical Record#: [id number] Age: 62 Wt: 236.56lb Gender: Male BSA: 2.29 Order #: [id number] BMI: 32.08 Physicians Procedure Physician: Filomena Hurley MD Referring MD: Richard Robin MD Referring MD: Staff Name Position Time In Cristina Mao RT (R) Monitor 07:46 AM Gisella Flores RT (R) Scrub 07:46 AM Maurice Mcpherson RN Director Stars 07:46 AM Indications Indication Abnormal Test - Stress Procedures Performed Procedure L HRT ARTERY/VENTRICLE ANGIO PRQ CARD HARRIS STENT W/ANGIO 1 VSL Pre-Procedure Checklist Informed consent is complete signed and on chart. H&P is on chart. ID band is on and ID verified with patient. Patient NPO for procedure The procedure was described for the patient and questions were answered. Blood Pressure: 135/86 ECG is on chart. Rhythm: NSR Plan of Care Patient will tolerate the procedure without complications. Adequate level of comfort will be maintained. Hemodynamics will remain stable Patient will recover from procedure without complications. Respiratory function will be maintained. Cardiac rhythm will remain stable. Patient temperature will be maintained. Patient and/or family have verbalized understanding of the procedure. Patient Education Chief Complaint/Reason for Test: Cardiac Cath Developmental Category: Adult (18-64 years) Developmentally Appropriate for Age: Yes Learning Barriers: None Education Needs: Procedure Education Method: Verbal Information Taught: Cardiac Cath Educational Evaluation: Able to repeat information Intravenous Access Time IV Size Location DC'd Fluid/Drip Rate Units RN 07:19 AM Started with 20g 1 1/4" Lt Antecubital 0.9NaCl 50 ml/hr Maurice Mcpherson RN Allergies iodine ofloxacin Iodinated Contrast- Oral and IV Dye ciprofloxacin Oxycodone Vital Signs Time BP (mmHg) HR (bpm) O2 Sat. RR (bpm) LOC 07:21 AM 135 / 86 75 16 % 5 07:40 AM / % 5 = Fully awake and oriented or at pre-proc level 07:40 AM / % 4 = Oriented but drowsy 07:55 AM / % 4 = Oriented but drowsy 08:11 AM / % 4 = Oriented but drowsy 08:26 AM / % 4 = Oriented but drowsy 07:47 AM 149 / 79 69 99 % 07:51 AM 151 / 79 72 99 % 07:56 AM 145 / 90 77 99 % 08:01 AM 130 / 78 69 98 % 08:06 AM 133 / 70 68 99 % 08:11 AM 124 / 80 65 100 % 08:16 AM 102 / 63 69 99 % 08:21 AM 117 / 80 70 98 % 08:26 AM 137 / 90 69 100 % 08:31 AM 143 / 80 75 99 % 08:36 AM 129 / 83 66 100 % Procedural Medications Time Medication Dose Units Method Given By 07:45 AM Oxygen 2 L/min nasal cannula Maurice Mcpherson RN 07:56 AM Versed 1 mg Intravenous Maurice Mcpherson RN 07:56 AM Fentanyl 50 mcg Intravenous Maurice Mcpherson RN 08:06 AM Lidocaine 2% 20 ml Subcutaneous Filomena Hurley MD 08:14 AM Heparin 5000 units Intravenous Maurice Mcpherson RN 08:16 AM Aggrastat Bolus: 54 ml Intravenous Maurice Mcpherson RN 08:16 AM Aggrastat 12.5mg/250ml 19.5 ml Intravenous Maurice Mcpherson RN 08:35 AM Brilinta 180 mg Orally Maurice Mcpherson RN ASA Classification: CLASS II- Mild systemic disease (i.e. well-controlled diabetes, hypertension, asthma, cigarette smoking) Linda Score Preprocedure Postprocedure Activity 2- Moves 4 extremities sustained head lift Activity 2- Moves 4 extremities sustained head lift Circulation 2- SBP +/= 20 points of pre-anesthetic level Circulation 2- SBP +/= 20 points of pre-anesthetic level Consciousness 2- Awake and alert oriented x 3 Consciousness 2- Awake and alert oriented x 3 O2 Saturation 2- Able to maintain O2 satruation of 92% on room air O2 Saturation 2- Able to maintain O2 satruation of 92% on room air Respiratory 2- Able to deep breathe and cough well Respiratory 2- Able to deep breathe and cough well Total Score 10 Total Score 10 Contrast Agent: Isovue Diagnostic Contrast: 115 ml Total Contrast: 115 ml Fluoro Dose: 934 mGy Procedure Log Time Note Enter By 07:40 AM Pt arrived to labeling associate 2 at 07:40 twilson 07:40 AM Patient charges- Angio tray pack, Navilyst 3mm J, Pulse Oximetry and ACIST tubing and transducer twilson 07:40 AM IV Supplies used: J loop Angio Cath. twilson 07:40 AM Physican paged/called 07:40. twilson 07:40 AM Time: 07:40 Patient comfortable and pain free: Yes twilson 07:40 AM Time: 07:40LOC: 5 = Fully awake and oriented or at pre-proc level twilson 07:40 AM Physican responded and notified patient is ready 07:40 twilson 07:45 AM CathStat 07:45 AM Vitals capture started with the following parameters, Patient=Adult, Interval=5 min, Initial Adssjxyc=636 mmHg, Deflation Rate=5 mmHg, Cuff placed on Right Arm 07:45 AM Physician arrived 07:45 twilson 07:45 AM Meet and greet completed twilson 07:45 AM Sign in performed according to hospital policy. twilson 07:45 AM Procedure start 07:45 twilson 07:46 AM Time: 07:45 Oxygen on at 2 L/min per nasal cannula by Maurice Mcpherson RN twilson 07:46 AM Cristina Mao RT (R) Position: Monitor Time in: 07:46 twilson 07:46 AM Gisella Flores RT (R) Position: Scrub Time in: 07:46 twilson 07:46 AM Maurice Mcpherson RN Position: Director Stars Time in: 07:46 twilson 07:46 AM Case Delayed no twilson 07:46 AM Clinical Presentation: Abnormal Stress twilson 07:47 AM HR=69 bpm, JGAY=658/79 mmhg, SpO2=99.0 % 07:49 AM Recorded ECG: HR=73 Condition=Condition 1 07:50 AM Recorded ECG: HR=? Condition=Condition 1 07:50 AM Recorded ECG: HR=72 Condition=Condition 1 07:51 AM HR=72 bpm, IPCK=028/79 mmhg, SpO2=99.0 % 07:53 AM Hair removed from procedure site in procedure lab using clippers. Bilateral groin prepped with Chloraprep by Cristina Mao RT (R), then patient was draped. Skin intact. twilson 07:55 AM Time: 07:40 Patient comfortable and pain free: Yes twilson 07:55 AM Time: 07:40LOC: 4 = Oriented but drowsy twilson 07:55 AM ASA Class CLASS II- Mild systemic disease (i.e. well-controlled diabetes, hypertension, asthma, cigarette smoking) twilson 07:56 AM Pressure channel 1 zeroed. 07:56 AM HR=77 bpm, RMZW=620/90 mmhg, SpO2=99.0 % 07:56 AM Time: 07:56 Versed 1 mg Intravenous Given by Maurice Mcpherson RN josé luis 07:56 AM Time: 07:56 Fentanyl 50 mcg Intravenous Given by Maurice Mcpherson RN josé luis 08:01 AM HR=69 bpm, IAPD=537/78 mmhg, SpO2=98.0 % 08:04 AM Time out performed according to hospital policy 08:06 AM HR=68 bpm, DKZN=828/70 mmhg, SpO2=99.0 % 08:07 AM Time: 08:06 20 ml Lidocaine 2% to right groin Subcutaneous Given by Filomena Hurley MD josé luis 08:09 AM Micro-Introducer Kit utilized for sheath placement 08:09 AM Access obtained by percutaneous puncture. 6Fr 10cm Terumo Roland sheath placed in right Femoral artery. [id number] 08:10 AM 5Fr FR 4 catheter inserted over the wire [facility] 08:10 AM Catheter selectively placed in left ventricle tw 08:10 AM Recorded Pressure: LV, HR=65, Condition=Condition 1 (Left Ventricle) LV 124/22/22 08:10 AM Recorded Pressure: LV, Ao, HR=63, Condition=Condition 1 (Left Ventricle) LV 119/20/19, (Aorta) Ao 110/67/88 08:11 AM Recorded Pressure: Ao, HR=65, Condition=Condition 1 (Aorta) Ao 120/85/103 08:11 AM HR=65 bpm, SWAO=539/80 mmhg, AlG5=026.0 % 08:11 AM Time: 07:55LOC: 4 = Oriented but drowsy tw 08:11 AM Time: 07:55 Patient comfortable and pain free: Yes tw 08:11 AM Recorded Pressure: Ao, HR=55, Condition=Condition 1 (Aorta) Ao 110/76/92 08:11 AM Pressures only. No injection. 08:11 AM RCA angiography performed in multiple views. 08:12 AM Wire reinserted 08:12 AM Catheter removed 08:12 AM Bed management called. 08:12 AM 5Fr FL 4 catheter inserted over the wire DNC twilson 08:12 AM Wire removed twilson 08:13 AM LCA angiography performed in multiple views. twilson 08:13 AM Recorded Pressure: Ao, HR=70, Condition=Condition 1 (Aorta) Ao 136/92/112 08:14 AM Recorded Pressure: Ao, HR=60, Condition=Condition 1 (Aorta) Ao 94/62/76 08:14 AM Time: 08:14 Heparin 5000 units Intravenous Given by Maurice Mcpherson RN twilson 08:15 AM Coronary Dominance: right twilson 08:16 AM Time: 08:16 Aggrastat Bolus: 54 ml Intravenous Given by Maurice Mcpherson RN [place] pump twilson 08:16 AM Time: 08:16 Aggrastat 12.5mg/250ml 19.5 ml Intravenous Given by Maurice Mcpherson RN [place] pump twilson 08:16 AM HR=69 bpm, KGQH=246/63 mmhg, SpO2=99.0 % 08:16 AM PCI Status Elective twilson 08:17 AM PCI Indication: Other twilson 08:17 AM PCI lesion in Proximal RCA. Pre Stenosis: 95 Pre JOSE JUAN Flow: 3: Complete and Brisk Flow/Perfusion twilson 08:17 AM Inflation device was opened. twilson 08:17 AM Right Coronary, Right Posterior Descending Arteries with Right Posterolateral and Acute Marginal branches with 95 % stenosis. If graft is supplying this area, 0 % stenosis twilson 08:18 AM Jwire reinserted and catheter removed. twilson 08:18 AM 6Fr JR 4 [place] Bright-Tip guide catheter was used to cannulate the PCI vessel successfully. reused? No twilson 08:19 AM Bed management responded. Patient will go to [facility] when procedure is complete. twilson 08:20 AM Recorded Pressure: Ao, HR=70, Condition=Condition 1 (Aorta) Ao 118/76/95 08:20 AM .014 [employer] [place] 190cm guide wire across target lesion- successful. reused? No twilson 08:21 AM HR=70 bpm, POFL=187/80 mmhg, SpO2=98.0 % 08:22 AM Recorded Pressure: Ao, HR=71, Condition=Condition 1 (Aorta) Ao 125/83/102 08:24 AM 2.0 mm x 12 mm Emerge Monorail balloon across target lesion- successful. reused? No twilson 08:24 AM Balloon inflated @ 6 reta for 8 seconds twilson 08:24 AM Balloon inflated @ 6 reta for 7 seconds twilson 08:24 AM Recorded Pressure: Ao, HR=71, Condition=Condition 1 (Aorta) Ao 137/89/110 08:25 AM Balloon catheter removed intact. twilson 08:26 AM 3.5mm x 20mm Synergy drug-eluting stent across target lesion- successful Lot #[id number] twilson 08:26 AM Time: 08:11 Patient comfortable and pain free: Yes tw 08: AM Time: 08:11LOC: 4 = Oriented but drowsy twilson 08:26 AM HR=69 bpm, HCNP=800/90 mmhg, LaG0=316.0 % 08:28 AM Stent deployed @ 11 reta for 10 seconds twilson 08:28 AM Stent balloon reinflated @ 11 reta for 10 seconds twilson 08:28 AM Stent balloon reinflated @ 14 reta for 12 seconds twilson 08:29 AM Stent delivery system removed intact. twilson 08:30 AM Recorded Pressure: Ao, HR=61, Condition=Condition 1 (Aorta) Ao 116/78/95 08:31 AM RCA angiography performed in multiple views. twilson 08:31 AM HR=75 bpm, PZWI=481/80 mmhg, SpO2=99.0 % 08:32 AM Guide wire removed intact. twilson 08:32 AM RCA angiography performed in multiple views. twilson 08:32 AM Recorded Pressure: Ao, HR=69, Condition=Condition 1 (Aorta) Ao 123/76/96 08:33 AM Wire reinserted. twilson 08:33 AM Wire and catheter removed. twilson 08:33 AM Procedure completed at 08:33 twilson 08:33 AM Family placed in consult room. twilson 08:34 AM Did you address JOSE JUAN flow and Dominance? Yes twilson 08:35 AM Sign out completed: Radiation Dose 934.08 mGy Fluoro Time: 6.7 Isovue 370 - 200ml contrast 115 ml given by Filomena Hurley MD. Complications: NoneCardiac Rehab Consult needed: YesConfirmed administered medications: Yes twilson 08:35 AM Isovue 370 - 200ml,1 Bottle(s) used. twilson 08:35 AM Arterial sheath pulled, Angio-seal closure device used and was Successful [id number] S/N. twilson 08:35 AM Time: 08:35 Brilinta 180 mg Orally Given by Maurice Mcpherson RN twilson 08:36 AM Estimated Blood Loss: minimal twilson 08:36 AM Post ECG NSR twilson 08:36 AM Post Blood Pressure 143/80 twilson 08:36 AM HR=66 bpm, ZEEA=654/83 mmhg, XdW3=871.0 % 08:36 AM 08:36 Post Pulses Bilateral DP & PT 2+ twilson 08:38 AM Information taught Cardiac Cath, PCI, and Angioseal twilson 08:38 AM Education needs Procedure, Plan of Care, and Responsibilities of Patient in Care twilson 08:38 AM Learning barriers :None twilson 08:38 AM Education Methods Verbal twilson 08:38 AM Education evaluation Able to repeat information twilson 08:38 AM Site status No bleeding/hematoma - Rt Groin as reported by Gisella Flores RT (R) at 08:38 twilson 08:38 AM Opsite applied twilson 08:38 AM Plavix, Effient or Brilinta given Yes twilson 08:38 AM Delay to floor No twilson 08:41 AM Time: 08:26LOC: 4 = Oriented but drowsy twilson 08:41 AM Time: 08:26 Patient comfortable and pain free: Yes twilson 08:50 AM Report given to Bryanna POWELL Pt taken to 2N Room #10. 08:49 twilson 08:50 AM Patient out of room: 08:50 twilson 08:51 AM Lesion found in Distal Circumflex. Pre Stenosis: 95 Pre JOSE JUAN Flow: twilson 08:51 AM Lesion found in 1st Marginal. Pre Stenosis: 50 Pre JOSE JUAN Flow: twilson 08:51 AM Lesion found in Mid LAD. Pre Stenosis: 65 Pre JOSE JUAN Flow: twilson 08:53 AM Mid/Distal Left Anterior Descending Coronary Artery and diagonal branches with 65% stenosis. If graft is supplying this area, 0 % stenosis twilson 08:53 AM Circumflex, Obtuse Marginal, Left Posterior Descending, and Left Posterolateral Coronary Arteries with 95 % stenosis. If graft is supplying this area, 0 % stenosis twilson Complications Complication None Hemodynamics Pressures Site Systolic/A Wave Diastolic/V Wave Mean LV 124 22 22 LV 119 20 19 AO 110 67 88 AO 120 85 103 AO 110 76 92 AO 136 92 112 AO 94 62 76 AO 118 76 95 AO 125 83 102 AO 137 89 110 AO 116 78 95 AO 123 76 96 Post Procedure Information Blood Pressure: 143/80 mmHg Rhythm: NSR Post procedural instructions were given Closure Device Time Device Success/Fail 08/16/2017 8:30:00 AM Angio-Seal VIP Successful Site Checks Time Location Status Staff Sheath In? Note 08:38 AM Rt Groin No bleeding/hematoma Gisella Flores RT (R) Pulses Time Site Pre-Procedure Post-Procedure Note 08/16/2017 7:19:00 AM Bilateral DP & PT 2+ 08/16/2017 7:19:00 AM Rt Ulnar 2+ 8:36:00 AM Bilateral DP & PT 2+ Updated by Cristina Mao RT (R) on 08/16/2017 8:57:02 AM electronically signed on 08/16/2017 8:58:39 AM with status of Final
[2017-08-16] MEDS ORDERED: Nitroglycerin 0.4 MG TAB.SUBL SL PRN (11:49)
[2017-08-16] MEDS ORDERED: Tirofiban 12.5 MG/250ML 12.5 MG/250 ML BAG IVC SCH (12:00)
[2017-08-16] MEDS: *HR* Ticagrelor 90 MG TABLET PO SCH (20:57)
[2017-08-17 05:29] LABS: Hematocrit 41.8 % (37.5-50.1)
[2017-08-17 05:30] LABS: Hemoglobin 13.8 g/dL (12.9-16.9)
[2017-08-17 05:49] LABS: BUN/Creatinine Ratio 16 (6-26); Blood Urea Nitrogen 17 mg/dL (8-23); eGFR For African Americans > 60 (> 60); eGFR For Non-African Americans > 60 (> 60)
[2017-08-17 07:15] VITALS: BP 134/93
[2017-08-17] MEDS: *HR* Ticagrelor 90 MG TABLET PO SCH (08:19)
[2017-08-17] MEDS ORDERED: Aspirin 81 MG TAB.CHEW PO SCH ×2 (09:00)
--- NOTE | 2017-08-17 09:04 | Discharge Summary ---
Orders not resulted at time of discharge: Pending orders 08/16/17 11:47 ECG 12 lead ECG [ECG] Stat 08/17/17 06:00 ECG 12 lead ECG [ECG] AM 0600 Date of Encounter: 08/17/17 Time of Encounter: 09:01 - Discharge Diagnosis (1) Status post coronary artery stent placement Priority: Primary Status: Acute (2) CAD (coronary artery disease) Priority: Primary Status: Acute Qualifiers: Coronary Disease-Associated Artery/Lesion type: [place] artery [place] vs. transplanted heart: [place] heart Associated angina: angina presence unspecified Qualified Code(s): I25.10 - Atherosclerotic heart disease of [place] coronary artery without angina pectoris - Hospital Course Hospital course: Mr. Baker is a 62 year old male with known hx of CAD and PCI that presented yesterday for outpt C due to abnormal stress test. C with severe one vessel CAD, successful PTCA/HARRIS to pRCA. Good quality collaterals from mLAD to right PDA. Stent placed from prior procedure in mRCA are patent. DAPT (ASA and Brilinta) uninterrupted x 1 year. Pt verbalizes understanding. Coupon card given. Continue ARB and Statin. No BB due to bradycardia, AVG HR 57. Smoking cessation counseling given, declines nicotine patches. Pt denies chest pain or dyspnea overnight. Labs and vitals stable. Right femoral access site moderate ecchymosis noted. No bleeding or hematoma. Restrictions discussed. Pt being d/c' d home in stable condition. Follow-up as outpt in 3-4 weeks, will coordinate. Time spent discussing smoking cessation with patient: 3 to 10 minutes - Time Spent with Patient Total time spent providing and/or coordinating discharge services: Less than 30 minutes - Discharge Medications Prescriptions: Ticagrelor [Brilinta] 90 mg PO BID #60 tablet Home Medications: Omeprazole [PriLOSEC] 40 mg PO BID 03/13/17 [History] Aspirin 81 mg PO DAILY tab.chew 03/14/17 [Rx] Atorvastatin [Lipitor] 80 mg PO HS #60 tablet 03/14/17 [Rx] Losartan [Cozaar] 25 mg PO DAILY #30 tablet 03/14/17 [Rx] Nitroglycerin 0.4 mg SL Q5MIN PRN #30 tab.subl 03/14/17 [Rx] Ticagrelor [Brilinta] 90 mg PO BID #60 tablet 08/17/17 [Rx] Allergies/Adverse Reactions: 3 Allergy/AdvReac Type Severity Reaction Status Date / Time ciprofloxacin [From Cipro] Allergy Rash Verified 08/16/17 06:45 Iodinated Contrast- Oral and Allergy Itching Verified 08/16/17 06:45 IV Dye iodine Allergy Swelling Verified 03/13/17 13:30 of Lip/Tongue/Throat ofloxacin [From Floxin] Allergy Rash Verified 03/13/17 13:30 Oxycodone [From Percocet] Allergy Itching Verified 03/13/17 13:30 tramadol [From Ultram] Allergy Itching Verified 08/16/17 06:45 Varenicline [From Chantix] Allergy Nausea Verified 08/16/17 06:47 Date of admission: 08/16/17 08:51 Primary care physician: Richard Robin MD Consults: 08/16/17 11:47 Consult to Cardiac Rehabilitation-Phase1 [CONS] Routine Comment: Reason for Consult: post op PCI Call Completed: Yes Discharging clinician: Bassam Ramos Anticipated date of discharge: 08/17/17 Physical Examination Vital Signs, Last 4 Hours Temp Pulse Resp BP Pulse Ox 08/17/17 07:14 97.9 F 55 19 134/93 99 Vital Signs Temp Pulse Resp BP Pulse Ox 08/17/17 08:15 97.9 F 55 19 134/93 99 08/17/17 07:14 97.9 F 55 19 134/93 99 08/17/17 04:12 53 08/17/17 03:56 98.0 F 60 16 129/89 98 08/16/17 23:50 59 08/16/17 23:42 98.1 F 60 18 134/89 08/16/17 19:38 98.5 F 62 18 136/93 08/16/17 19:35 64 08/16/17 16:33 97.5 F L 61 18 152/96 97 08/16/17 12:14 98.4 F 75 18 140/102 98 08/16/17 11:00 71 154/92 08/16/17 10:30 71 138/89 08/16/17 09:45 75 155/98 08/16/17 09:30 70 143/100 08/16/17 09:15 71 143/102 Intake and Output 08/16/17 08/17/17 08/17/17 23:59 07:59 15:59 Intake Total 240 / 240 240 / 240 0 / 0 Output Total 0 / 0 Balance 240 / 240 240 / 240 0 / 0 Intake: Oral 240 / 240 240 / 240 0 / 0 Output: Urine 0 / 0 Other: Meal Dinner Percent of Meal Consumed 100% # Voids 1 Weight 106 kg Patient Weight 08/17/17 23:59 Weight 106 kg General: Conversant, No Apparent Distress HEENT: Atraumatic, Normocephaly, Mucus Membranes Moist Neck: No JVD, Normal carotid pulses Cardiac: Reg Rate and Rhythm, Normal S1 and S2, No Murmur Lungs: Normal Breath Sounds, No Wheeze, Rales, Rhonchi Neuro: Alert and responsive, No focal deficits noted Abdomen: Soft, Non-Tender Skin: Other (right femoral access site moderate ecchymosis. No active bleeding or hematoma.) Musculoskeletal: No Chest Wall Tenderness Extremities: No Clubbing, No Cyanosis, No Edema, Normal Pulses - Patient Status Disposition: Home, Self-Care Condition: Fair Functional capacity at discharge: independent ambulation Overall status at discharge: patient is progressing back to baseline - Discharge Instructions Follow Up With: Richard Robin MD [Primary Care Provider] - (SENT WEB REQUEST ON 08-16-17 @0489) Filomena Hurley [Partnered Physician] - 09/01/17 8:00 am Additional Instructions: RISK FACTORS: STOP SMOKING: If you smoke, STOP. Smoking or tobacco use significantly increases your risk of heart disease because nicotine causes the arteries to narrow or constrict. It also causes fats to stick to the artery. Your chances of having a heart attack are greatly increased if you continue to smoke. For more information, call the education line for smoking cessation 7-237-MFGRXYO EAT A LOW FAT/CHOLESTEROL/SODIUM DIET: This diet may help reduce your chances of having a heart attack. LIFTING: Avoid lifting anything more than 10 pounds for 5-7 days Prior to straining, laughing, sneezing and/or coughing, apply manual pressure directly over insertion site. ACTIVITY: You may walk or climb stairs as tolerated You can resume sexual activity as tolerated In general, you are encouraged to engage in a minimum of 30 minutes or more of moderate intensity physical activity, such as brisk walking, daily or at least 3 -4 times weekly BATHING Do not submerge the site into water (bath tub, hot tub, swimming pool) for 1 week. This can be a source for infection into the blood stream. You may shower after 24 hours SITE CARE: After 24 hours, you may remove the dressing and leave the site open to air. Keep the site clean and dry. Clean gently and pat dry. You can expect bruising and tenderness that gradually resolve within a week or two. Return to work as instructed per your physician Resume driving as instructed per physician Keep all scheduled follow up appointments Resume medications as instructed IMPORTANT: If prescribed a Platelet Aggregation Inhibitor such as, Plavix, Brilinta or Effient: Duration of therapy is minimum one year These medications are often used in combination with Aspirin in prevention of future heart attacks Never discontinue unless consult with your Blanket Folder STROKE (CVA) Risk factors for a stroke are: Age, cigarette smoking, diabetes, excessive alcohol consumption, family history, high blood pressure, overweight, physical inactivity, prior stroke, heart attack, diagnosis of carotid artery stenosis or other artery disease. Warning signs: Sudden numbness or weakness of the face, arm or leg; especially on one side of the body, sudden confusion, trouble speaking or understanding, sudden trouble seeing in one or both eyes, sudden trouble walking, dizziness, loss of balance or coordination, sudden severe headache with no cause. Call 911 or go to the Emergency Room. CONGESTIVE HEART FAILURE: If you have been diagnosed with Congestive Heart Failure (CHF) and your symptoms return, make an appointment with your physician Weigh yourself daily. Notify your physician if you have a weight gain of two or more pounds in one day or five or more pounds in one week. If you experience any difficulty breathing, please call 911 BLEEDING: Although the risk of bleeding is minimal, it can happen. If you have any bleeding from the site, apply firm pressure above the puncture site for 10-15 minutes. If the bleeding does not stop, continue manual pressure and call 911 Contact your physician if: You develop a fever greater than 101 degrees Fahrenheit Your site becomes reddened or has any drainage You have an increase in pain or burning at the site or if a large knot forms at the site. If you experience chest pain, shortness of breath, dizziness, or extreme tiredness, stop the activity and rest. Please notify your physicians office if you experience any of these symptoms and they are not relieved by rest please call 911! - Diet and Activity Activity: increase activity as tolerated Diet: low fat, low cholesterol
--- NOTE | 2017-08-18 20:12 | Electrocardiograph Report ---
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
== END 2017-08-17 10:53 | disposition home or self-care (01) ==
LOC: INVDIALAB 06:29 → 2NNU 06:29
PROVIDERS: ADMIT Internal Medicine Cardiovascular Disease; ATTEND Emergency Medicine

== ENCOUNTER 2020-12-19 06:11 | Inpatient (IN) ==
[2020-12-19] MEDS ORDERED: Ringers Solution, Lactated 1,000 ML IVC SCH (06:30)
[2020-12-19] MEDS ORDERED: CeFAZolin Syr 2,000MG/20 ML 2,000 MG/20 ML SYRINGE IVPB ONE (06:30)
[2020-12-19] MEDS ORDERED: *HR* Propofol 200 MG/20 ML VIAL IVP ONE (06:44)
[2020-12-19] MEDS ORDERED: *HR* Rocuronium Bromide 50 MG/5 ML VIAL ONE ×2 (06:46→09:23)
[2020-12-19] MEDS ORDERED: Lidocaine -MPF 2% 2 ML VIAL ONE (06:46)
[2020-12-19] MEDS ORDERED: Ondansetron 4 MG/2 ML VIAL ONE (06:46)
[2020-12-19] MEDS ORDERED: *HR* HYDROmorphone PF 0.5 MG/0.5 ML SYRINGE IVP PRN (07:04)
[2020-12-19] MEDS ORDERED: *HR* FentaNYL (PF) 100 MCG/2 ML VIAL ONE ×2 (07:04→07:34)
[2020-12-19] MEDS ORDERED: Acetaminophen IV 1,000 MG/100 ML BAG IVPB ONE (07:04)
[2020-12-19] MEDS ORDERED: Ondansetron 4 MG/2 ML VIAL IVP PRN ×3 (07:04→13:27)
[2020-12-19] MEDS ORDERED: Albuterol 2.5 MG/3 ML NEBULIZER IH PRN ×2 (07:04→13:27)
[2020-12-19] MEDS ORDERED: Ketorolac 15 MG/ML VIAL IVP PRN (07:04)
[2020-12-19] MEDS ORDERED: *HR* HYDROmorphone 2 MG TABLET PO PRN (07:04)
[2020-12-19] MEDS ORDERED: Gabapentin 300 MG CAPSULE PO ONE (07:04)
[2020-12-19] MEDS ORDERED: Famotidine 20 MG/2 ML VIAL IVP ONE (07:04)
[2020-12-19] MEDS ORDERED: *HR* Midazolam HCl 2 MG/2 ML VIAL ONE (07:34)
[2020-12-19] MEDS ORDERED: EPHEDrine 50 MG/ML VIAL ONE (08:23)
[2020-12-19] MEDS ORDERED: 0.9 % Sodium Chloride 1,000 ML IVC SCH (10:30)
[2020-12-19] MEDS ORDERED: *HR* HYDROcodone/Acet 5/325 mg TABLET PO PRN (10:30)
[2020-12-19] MEDS ORDERED: Naloxone 0.4 MG/ML INJ IVP PRN (10:30)
[2020-12-19] MEDS ORDERED: Ipratropium/Albuterol Neb 3 ML IH SCH (12:00)
[2020-12-19] MEDS ORDERED: *HR* Heparin 5,000 UNIT/ML VIAL SQ SCH (14:00)
[2020-12-19] MEDS: 0.9 % Sodium Chloride 1,000 ML IVC SCH (14:41)
[2020-12-19] MEDS: Gabapentin 300 MG CAPSULE PO SCH ×2 (14:43→20:24)
[2020-12-19] MEDS: *HR* Heparin 5,000 UNIT/ML VIAL SQ SCH ×2 (14:44→20:24)
[2020-12-19] MEDS ORDERED: Gabapentin 300 MG CAPSULE PO SCH (15:00)
[2020-12-19] MEDS: *HR* HYDROcodone/Acet 5/325 mg TABLET PO PRN ×2 (15:24→23:37)
[2020-12-19] MEDS: Ipratropium/Albuterol Neb 3 ML IH SCH ×3 (16:27→23:54)
[2020-12-19] MEDS: Famotidine 20 MG TABLET PO SCH (20:23)
[2020-12-19] MEDS: Sennosides/Docusate Sodium TABLET PO SCH (20:23)
[2020-12-19] MEDS ORDERED: Sennosides/Docusate Sodium TABLET PO SCH (21:00)
[2020-12-19] MEDS ORDERED: Famotidine 20 MG TABLET PO SCH (21:00)
[2020-12-20] MEDS: Ipratropium/Albuterol Neb 3 ML IH SCH ×2 (03:27→09:26)
[2020-12-20] MEDS: 0.9 % Sodium Chloride 1,000 ML IVC SCH (04:05)
[2020-12-20 06:34] LABS: Hematocrit 37.7 % (37.5-50.1); Hemoglobin 12.3 g/dL (12.9-16.9); Mean Corpuscular HGB Conc 32.6 g/dL (31.6-35.5); Mean Corpuscular Hemoglobin 30.9 pg (28.0-33.3); Mean Corpuscular Volume 94.7 fL (83.0-100.0); Mean Platelet Volume 10.5 fL (9.4-12.4); Platelet Count 239 K/mcL (140-400); Red Blood Count 3.98 M/mcL (4.19-5.50); Red Cell Distribution Width 13.9 % (11.5-14.5); White Blood Count 12.7 K/mcL (4.3-11.1)
[2020-12-20] MEDS: *HR* Heparin 5,000 UNIT/ML VIAL SQ SCH ×4 (06:47→20:31)
[2020-12-20 06:55] LABS: BUN/Creatinine Ratio 14 (6-26); Blood Urea Nitrogen 16 mg/dL (8-23); Calcium 8.6 mg/dL (8.6-10.3); Carbon Dioxide 25 mEq/L (23-29); Chloride 101 mEq/L (98-107); Glucose 126 mg/dL (70-105); Magnesium 1.9 mg/dL (1.6-2.6); Osmolality,Calculated 285 (280-300); Potassium 4.1 mEq/L (3.5-5.1); Sodium 136 mEq/L (136-145); eGFR For African Americans > 60 (> 60); eGFR For Non-African Americans > 60 (> 60)
[2020-12-20] MEDS: *HR* HYDROcodone/Acet 5/325 mg TABLET PO PRN ×2 (07:37→12:56)
[2020-12-20] MEDS: Aspirin 81 MG TAB.CHEW PO SCH (08:35)
[2020-12-20] MEDS: hydroCHLOROthiazide 25 MG TABLET PO SCH (08:35)
[2020-12-20] MEDS: Famotidine 20 MG TABLET PO SCH ×2 (08:35→20:32)
[2020-12-20] MEDS: Gabapentin 300 MG CAPSULE PO SCH ×3 (08:36→20:32)
[2020-12-20] MEDS: amLODIPine 5 MG TABLET PO SCH (08:36)
[2020-12-20] MEDS: Sennosides/Docusate Sodium TABLET PO SCH ×2 (08:37→20:32)
[2020-12-20] MEDS: Levalbuterol Neb 1.25 MG/3 ML IH SCH ×3 (11:50→21:43)
[2020-12-20] MEDS ORDERED: Nitroglycerin 0.4 MG TAB.SUBL SL PRN (14:06)
[2020-12-20] MEDS ORDERED: Nitroglycerin 0.4 MG TAB.SUBL SL ONE (14:07)
[2020-12-20] MEDS ORDERED: *HR* HYDROmorphone (PF) 1 MG/ML SYRINGE IVP ONE (16:00)
[2020-12-20] MEDS: *HR* HYDROcodone/Acet 7.5/325 mg TABLET PO PRN ×2 (17:05→23:51)
[2020-12-21 01:57] LABS: Hematocrit 32.8 % (37.5-50.1); Hemoglobin 10.9 g/dL (12.9-16.9); Mean Corpuscular HGB Conc 33.2 g/dL (31.6-35.5); Mean Corpuscular Hemoglobin 30.9 pg (28.0-33.3); Mean Corpuscular Volume 92.9 fL (83.0-100.0); Mean Platelet Volume 10.5 fL (9.4-12.4); Platelet Count 225 K/mcL (140-400); Red Blood Count 3.53 M/mcL (4.19-5.50); White Blood Count 13.4 K/mcL (4.3-11.1)
[2020-12-21 02:13] LABS: BUN/Creatinine Ratio 20 (6-26); Blood Urea Nitrogen 25 mg/dL (8-23); Calcium 8.6 mg/dL (8.6-10.3); Carbon Dioxide 25 mEq/L (23-29); Chloride 101 mEq/L (98-107); Glucose 130 mg/dL (70-105); Osmolality,Calculated 288 (280-300); Potassium 3.7 mEq/L (3.5-5.1); Sodium 136 mEq/L (136-145); eGFR For African Americans > 60 (> 60); eGFR For Non-African Americans 59 (> 60)
[2020-12-21] MEDS: *HR* HYDROcodone/Acet 7.5/325 mg TABLET PO PRN ×4 (03:54→20:30)
[2020-12-21] MEDS: Levalbuterol Neb 1.25 MG/3 ML IH SCH ×4 (05:17→20:20)
[2020-12-21] MEDS: *HR* Heparin 5,000 UNIT/ML VIAL SQ SCH ×3 (05:47→20:29)
[2020-12-21] MEDS: Gabapentin 300 MG CAPSULE PO SCH ×3 (08:54→20:30)
[2020-12-21] MEDS: Famotidine 20 MG TABLET PO SCH ×2 (08:54→20:30)
[2020-12-21] MEDS: hydroCHLOROthiazide 25 MG TABLET PO SCH (08:54)
[2020-12-21] MEDS: Aspirin 81 MG TAB.CHEW PO SCH (08:54)
[2020-12-21] MEDS: Sennosides/Docusate Sodium TABLET PO SCH ×2 (08:54→20:30)
[2020-12-21] MEDS: amLODIPine 5 MG TABLET PO SCH (08:55)
[2020-12-21] MEDS: *HR* LORazepam 0.5 MG TABLET PO PRN (20:30)
[2020-12-22] MEDS: *HR* HYDROcodone/Acet 7.5/325 mg TABLET PO PRN ×4 (04:10→20:27)
[2020-12-22] MEDS: Levalbuterol Neb 1.25 MG/3 ML IH SCH ×4 (04:45→22:36)
[2020-12-22] MEDS: *HR* Heparin 5,000 UNIT/ML VIAL SQ SCH ×3 (05:44→20:28)
[2020-12-22 07:11] LABS: BUN/Creatinine Ratio 23 (6-26); Blood Urea Nitrogen 24 mg/dL (8-23); Calcium 8.1 mg/dL (8.6-10.3); Carbon Dioxide 27 mEq/L (23-29); Chloride 100 mEq/L (98-107); Glucose 113 mg/dL (70-105); Osmolality,Calculated 283 (280-300); Potassium 3.5 mEq/L (3.5-5.1); Sodium 134 mEq/L (136-145); eGFR For African Americans > 60 (> 60); eGFR For Non-African Americans > 60 (> 60)
[2020-12-22] MEDS: Famotidine 20 MG TABLET PO SCH ×2 (09:46→20:26)
[2020-12-22] MEDS: Aspirin 81 MG TAB.CHEW PO SCH (09:46)
[2020-12-22] MEDS: amLODIPine 5 MG TABLET PO SCH (09:46)
[2020-12-22] MEDS: hydroCHLOROthiazide 25 MG TABLET PO SCH (09:46)
[2020-12-22] MEDS: Sennosides/Docusate Sodium TABLET PO SCH ×2 (09:47→20:26)
[2020-12-22] MEDS: Gabapentin 300 MG CAPSULE PO SCH ×3 (09:47→20:26)
[2020-12-22] MEDS: *HR* LORazepam 0.5 MG TABLET PO PRN (20:27)
[2020-12-23] MEDS: Levalbuterol Neb 1.25 MG/3 ML IH SCH ×4 (04:52→21:12)
[2020-12-23] MEDS: *HR* Heparin 5,000 UNIT/ML VIAL SQ SCH ×3 (05:40→21:48)
[2020-12-23] MEDS: *HR* HYDROcodone/Acet 7.5/325 mg TABLET PO PRN ×3 (05:40→21:48)
[2020-12-23] MEDS: hydroCHLOROthiazide 25 MG TABLET PO SCH (09:51)
[2020-12-23] MEDS: amLODIPine 5 MG TABLET PO SCH (09:51)
[2020-12-23] MEDS: Famotidine 20 MG TABLET PO SCH ×2 (09:51→21:48)
[2020-12-23] MEDS: Gabapentin 300 MG CAPSULE PO SCH ×3 (09:51→21:48)
[2020-12-23] MEDS: Aspirin 81 MG TAB.CHEW PO SCH (09:51)
[2020-12-23] MEDS: Sennosides/Docusate Sodium TABLET PO SCH ×2 (09:51→21:48)
[2020-12-23] MEDS: *HR* LORazepam 0.5 MG TABLET PO PRN (21:48)
[2020-12-24] MEDS: Levalbuterol Neb 1.25 MG/3 ML IH SCH ×2 (04:11→09:41)
[2020-12-24 04:29] VITALS: PULSE 76
[2020-12-24] MEDS: *HR* Heparin 5,000 UNIT/ML VIAL SQ SCH (05:56)
[2020-12-24] MEDS: *HR* HYDROcodone/Acet 7.5/325 mg TABLET PO PRN (05:57)
[2020-12-24 07:58] VITALS: BP 135/78; TEMP 98.3; O2SAT 94
[2020-12-24] MEDS: Aspirin 81 MG TAB.CHEW PO SCH (09:41)
[2020-12-24] MEDS: hydroCHLOROthiazide 25 MG TABLET PO SCH (09:41)
[2020-12-24] MEDS: Sennosides/Docusate Sodium TABLET PO SCH (09:42)
[2020-12-24] MEDS: amLODIPine 5 MG TABLET PO SCH (09:42)
[2020-12-24] MEDS: Gabapentin 300 MG CAPSULE PO SCH (09:42)
[2020-12-24] MEDS: Famotidine 20 MG TABLET PO SCH (09:42)
[2020-12-24] MEDS ORDERED: FLU Vac QV 21-22 (6Month+)/PF 0.5 ML SYRINGE IM ONE (10:25)
== END 2020-12-24 11:30 | disposition home or self-care (01) | DRG 165 ==
LOC: SAMDAY 06:11 → 2NNU 13:26 → 2ANU 12-21 00:54
PROVIDERS: ADMIT Thoracic Surgery (Cardiothoracic Vascular Surgery); ATTEND Thoracic Surgery (Cardiothoracic Vascular Surgery)